=== PATIENT | female | born 2000 | race Caucasian/White ===

== ENCOUNTER 2021-09-28 10:35 | Emergency (ER) | payer OTHER ==
[2021-09-28 11:09] LABS: Bilirubin 1+ (Negative); Blood, Urine Negative (Negative); Clarity Clear (Clear); Glucose, Urine (Dipstick) Normal (Negative); Ketone, Urine Negative (Negative); Leukocyte Negative (Negative); Nitrite Positive (Negative); Protein, Urine (Dipstick) Negative (Neg-Trace); Specific Gravity, Urine 1.005 (1.002-1.036)
[2021-09-28 11:21] LABS: Bacteria/HPF 1+ HPF (None Seen); RBC/HPF 0-3 HPF (0-3); Squamous Epithelial 0-3 HPF (0-3)
[2021-09-28 11:23] LABS: Sperm/HPF Rare HPF (None Seen); Transitional Epithelial 0-3 HPF (None Seen)
[2021-09-28 11:25] LABS: Oval Fat Bodies/HPF 1+ HPF (None Seen)
[2021-09-28] MEDS ORDERED: Acetaminophen 500 MG TAB ONE (11:28)
[2021-09-28 11:37] LABS: Pregnancy Test - Urine (BHCG) Negative (Negative); Pregu Control Background? CLEAR/WHITE (CLR/WHITE); Pregu Control Bar Appear? YES (CONTROL BAR); Specific Gravity 1.005 (1.002-1.036)
== END 2021-09-28 15:36 | disposition home or self-care (01) ==
LOC: CSHERS 10:35
DX: N39.0 Urinary tract infection, site not specified (principal); I10 Essential (primary) hypertension
CPT/HCPCS: 81003; 81015; 81025; 87077; 87086; 99283